=== PATIENT | female | born 1950 | race Caucasian/White ===

== ENCOUNTER 2025-04-16 11:11 | Day surgery (SDC) | payer MEDICARE, BC ==
[2025-04-09 12:00] LABS: MEAN PLATELET VOLUME 7.3 FL (7.4-10.4); PRE OP HEMATOCRIT 37.6 % (35.0-45.0); PRE OP HEMOGLOBIN 12.4 g/dL (12.0-16.0); PRE OP PLATELET COUNT 414 X10'3 (140-440); PRE OP WHITE BLOOD COUNT 5.9 10'3 (4.8-10.8); RED CELL DISTRIBUTION WIDTH 13.8 % (11.5-14.5)
--- NOTE | 2025-04-09 12:13 | ELECTROCARDIOGRAPH REPORT ---
[facility] Test Date: 2025-04-09 Test Time: 12:11:33 Pat Name: SHELL BELL [id number] Room: Gender: F Blurb Writer: CHARLES : 1950 Requested By: JEAN PIERRE DODD Order Number: [id number] Reading MD: Dr. TD Long Measurements Intervals [place] Rate: 58 P: 70 [place]: 171 QRS: 26 QRSD: 104 T: 84 QT: 462 QTc: 454 Interpretive Statements Sinus bradycardia Left atrial enlargement RSR' in V1 or V2, probably normal variant Borderline repolarization abnormality Electronically Signed On 04-09-2025 16:48:[address] TD Long Please click the below link to view image of tracing.
[2025-04-09 12:15] LABS: CREATININE 0.47 MG/DL (0.40-0.90); PRE OP ALT 32 U/L (30-65); PRE OP ANION GAP 8 (8-16); PRE OP AST 24 U/L (10-37); PRE OP BILIRUB, TOTAL 1.8 MG/DL (0.0-1.0); PRE OP GLUCOSE 112 MG/DL (70-104); PRE OP POTASSIUM 3.6 MMOL/L (3.4-5.1); PRE OP SODIUM 141 MMOL/L (135-145); TOTAL CARBON DIOXIDE 30.0 MMOL/L (24-32); eGFR > 90 ML/MIN
[~2025-04-16] VITALS: Ht 154.9 cm; Wt 60.8 kg
[2025-04-16] VITALS (44 sets, daily range): BP systolic 116–152; BP diastolic 63–97; PULSE 56–92; RESP 10–26; TEMP 98.2–99; O2SAT 87–100
[~2025-04-16 11:11] MED LIST: AMLO2.5T5 PO; ATOR40TA72 PO; CELE-127 PO; CHOL20004 PO; ESOM40CA66 PO; HYDR-3972 PO; LOSA50TA64 PO; MAGN400T39 PO; MULT-1249 PO; SOLI5TAB8 PO; [UNRECOGNIZED DRUG - CODE] PO
[2025-04-16] MEDS: ceFAZolin 2gm/dext,iso 50mL 50 ML IV ONE (12:06)
[2025-04-16] MEDS: ringers solution, lacted 1,000 ML IV SCH ×2 (12:06→13:10)
[2025-04-16] MEDS ORDERED: BUPIVAcaine/PF 2.5mg/ml (0.25%) 10ml vial ONE (13:04)
[2025-04-16] MEDS ORDERED: LIDOcaine 1% 30ml preserv. free vial ONE (13:04)
[2025-04-16] MEDS ORDERED: BUPIVAcaine 2.5mg/ml inj 50ml vial (contains preservative) ONE (13:04)
[2025-04-16] MEDS ORDERED: BUPIVACAINE liposomal/PF 13.3 MG/ML 10mL vial IM ONE (13:05)
[2025-04-16] MEDS ORDERED: labetalol 20mg/4ml (5mg/ml) syringe IV PRN (13:10)
[2025-04-16] MEDS ORDERED: morphine 4 MG/ML inj SYRINge IV PRN (13:10)
[2025-04-16] MEDS ORDERED: ondansetron/PF 4mg/2ml inj IV PRN ×2 (13:10→19:30)
[2025-04-16] MEDS ORDERED: hydrALAZINE 20mg/ml inj. IV PRN (13:10)
--- NOTE | 2025-04-16 13:16 | HISTORY AND PHYSICAL ---
History & Physical Providers to CC CC: JEAN PIERRE DODD MD ~ History of Present Illness Reason for Admit\Complaint: Incarcerated ventral hernia History of Present Illness Interval history and physical exam Patient is here today for elective repair of a ventral hernia She was seen in the office greater than 30 days ago but denies any change in her past medical history since that date Please see previous history and physical exam for all pertinent details She is scheduled for robotic assisted, laparoscopic incarcerated ventral hernia repair with mesh Allergies: Coded Allergies: No Known Allergies (Unverified , 04/15/25) Home Medications Home Medications Active Reported Multivitamin 1 Each Tablet 1 Tab PO HS 30 Days Coqmax-[place] 100 mg Softgel ([place]-3/Dha/Epa/Fish Oil/Coq10) 348-100 Mg Capsule 1 Tab PO HS Vitamin D (Cholecalciferol) 2,000 Unit Tablet 5,000 Units PO HS 30 Days Magnesium (Magnesium Oxide) 400 Mg Magnesium Tablet 1 Tab PO HS 30 Days Hydrocodon-Acetaminophn 10-325 tablet (Acetaminophen/Hydrocodone Bitart) 10mg- 325mg Tablet 1 Tab PO TID PRN Solifenacin Succinate 5 Mg Tablet 1 Tab PO DAILY Losartan Potassium 50 Mg Tablet 1 Tab PO BID@0800,2100 Amlodipine Besylate 2.5 Mg Tablet 1 Tab PO HS Atorvastatin Calcium 40 Mg Tablet 1 Tab PO HS Esomeprazole Magnesium 40 Mg Capsule.dr 1 Cap PO DAILY Celecoxib 200 Mg Capsule 1 Tab PO BID ROS ROS Reviewed and negative Exam Chest: Lungs are are clear to auscultation bilaterally Cardiovascular: Regular rate and rhythm without murmurs Abdomen: Soft and nondistended Supraumbilical mass consistent with a history of incarcerated ventral hernia Problems: (1) Incarcerated ventral hernia Assessment & Plan: The risks, benefits, and alternatives to a robotic assisted, laparoscopic incarcerated ventral hernia repair with mesh were discussed with the patient. Risks include, but are not limited to, bleeding, infection, injury to intra-abdominal structures, hernia recurrence and chronic postoperative pain. Patient verbalized understanding and wishes to proceed with surgery. We will do so today as scheduled JEAN PIERRE DODD MD Apr 16, 2025 13:16
[2025-04-16] MEDS ORDERED: midazolam 1 mg/ML 2ml injection ONE (13:18)
[2025-04-16] MEDS ORDERED: fentaNYL /PF 50mcg/ml 5ml ampule ONE (13:18)
[2025-04-16] MEDS: BUPIVAcaine/PF 2.5 mg/ml (0.25%) 30ml vial IJ ONE (13:49)
[2025-04-16] MEDS: BUPIVACAINE liposomal/PF 13.3 MG/ML 10mL vial IM ONE (13:50)
[2025-04-16] MEDS: LIDOcaine 1% 30ml preserv. free vial IJ ONE (13:50)
[2025-04-16] MEDS ORDERED: propofol inj 20 ML IV ONE (14:44)
[2025-04-16] MEDS ORDERED: rocuronium 10mg/ml inj IV ONE (14:44)
[2025-04-16] MEDS ORDERED: ondansetron/PF 4mg/2ml inj ONE (14:44)
[2025-04-16] MEDS ORDERED: dexamethasone sod phosphate 4mg/ml inj. ONE (14:44)
[2025-04-16] MEDS ORDERED: LIDOcaine 2% (20mg/ml) 5ml vial ONE (14:45)
[2025-04-16] MEDS ORDERED: glycopyrrolate 0.2mg/ml inj ONE (14:45)
[2025-04-16] MEDS: HYDROmorphone/PF 0.2 MG/ML SYRINGE IV PRN ×2 (15:17→16:05)
[2025-04-16] MEDS: acetaminophen 1,000mg/100ml IV 100 ML IV PRN (15:18)
--- NOTE | 2025-04-16 15:25 | OPERATIVE REPORT ---
Operative Report Providers to CC CC: CECIL DODD MD ~ Date of Procedure: Apr 16, 2025 Pre-Operative Diagnosis: Incarcerated ventral hernia Post-Operative Diagnosis 2 cm incarcerated ventral hernia Procedure Performed Robotic assisted, laparoscopic 2 cm incarcerated ventral hernia repair with mesh Surgeon: Cecil Dodd MD FACS Instruction Dean None Anesthesiologist: Raoul Hratman Type of Anesthesia: General Findings: 2 cm ventral hernia with large amount of incarcerated preperitoneal fat; midepigastrium Very small subcentimeter ventral hernia just below this Wound class I Complications None Prosthetics\Implants used: 10 x 10 cm ProGrip mesh Estimated Blood Loss: Minimal Specimen Removed: None Description of Procedure: Patient was brought to the operating room and identified by the nursing staff and the attending physician. Patient was placed supine and a general anesthesia was induced. Preoperative antibiotics were given. The abdomen was prepped and draped in the standard sterile fashion. Through a left subcostal stab incision the abdomen was accessed with a Veress needle technique. Abdomen was insufflated without incident. The incision was lengthened to accommodate a 12 mm optical trocar and the abdomen was entered under laparoscopic visualization. The abdomen was surveyed laparoscopically. There was indentation of the mid falciform ligament consistent with history of incarcerated ventral hernia. Multiple attempts at reducing this with external pressure were unsuccessful. Under laparoscopic visualization, robotic trochars were placed in the left lower and right lower quadrants. The da John robotic arm was docked to the patient and instruments guided intra-abdominally under laparoscopic visualization. Patient was placed in reverse Trendelenburg position. About 5 cm below the anticipated fascial defect, a peritoneal rent was created in the preperitoneal plane was developed and dissected superiorly. A 10 x 10 cm space, centered at the fascial defect was then developed. During the dissection, two separate fascial defects were encountered, one smaller defect, less than 1 cm and a 2 cm fascial defect with a large amount of incarcerated preperitoneal fat. Contents were completely reduced. Defects were closed with a running absorbable suture and a 10 x 10 cm ProGrip mesh was passed into the preperitoneal space. This was unfolded, centered at the larger defect. Peritoneal flap was then closed with a running absorbable suture. [place] were retrieved. The da John instruments were then removed and the robot undocked from the patient. Ports were removed after the abdomen was allowed to deflate. Skin was closed at all sites with 4-0 Monocryl sutures and dressed with sterile dressings. Patient was awakened and taken to the postanesthesia care unit in stable condition. Counts repoted as correct: Yes CECIL DODD MD Apr 16, 2025 15:25
[2025-04-16] MEDS ORDERED: PER5325T PO (15:26)
[2025-04-16] MEDS: HYDROcodone/acetaminophen 10/325mg tab PO ONE (16:37)
[2025-04-16] MEDS ORDERED: oxyCODONE/APAP 5-325mg tablet PO PRN (19:30)
[2025-04-16] MEDS: EPA PO SCH (21:31)
[2025-04-16] MEDS: DHA PO SCH (21:31)
[2025-04-16] MEDS: FISH OIL PO SCH (21:31)
[2025-04-16] MEDS: COQ10 PO SCH (21:31)
[2025-04-16] MEDS: OMEGA PO SCH (21:31)
[2025-04-16] MEDS: cholecalciferol (vitamin D3) 1,000 unit (25mcg) tablet PO SCH (22:03)
[2025-04-16] MEDS: multivitamins, therapeutics tablet PO SCH (22:05)
[2025-04-16] MEDS: docusate sod 100mg capsule PO SCH (22:10)
[2025-04-16] MEDS: oxyCODONE/APAP 5-325mg tablet PO PRN (22:15)
[2025-04-17 00:20] VITALS: BP 111/66; PULSE 63; O2SAT 95
[2025-04-17 02:00] VITALS: BP 110/60; PULSE 64; RESP 16; TEMP 98; O2SAT 96
[2025-04-17 02:20] VITALS: O2SAT 96
[2025-04-17 06:30] VITALS: BP 114/63; PULSE 71; RESP 19; TEMP 97.9; O2SAT 95
[2025-04-17] MEDS: pantoprazole 40mg Tablet.DR PO SCH (07:38)
[2025-04-17] MEDS ORDERED: CELECOXIB PO SCH (08:00)
[2025-04-17 11:00] VITALS: BP 114/60; PULSE 68; RESP 17; TEMP 98; O2SAT 95
[2025-04-17 13:56] VITALS: RESP 16
--- NOTE | 2025-04-17 17:35 | DISCHARGE SUMMARY ---
Discharge Summary Providers to CC CC: CECIL DODD MD ~ Discharge Summary Admission Diagnosis: Incarcerated ventral hernia Hospital Course DATE OF ADMISSION: April 16, 2025 DATE OF DISCHARGE: April 17, 2025 Discharge Diagnosis\Comment: Incarcerated ventral hernia Hypoxia Operations\Procedures: Robotic assisted, laparoscopic incarcerated ventral hernia repair with mesh Consultants: Cecil Dodd MD FACS Complications: None Condition on DC: Stable New Medications: Oxycodone Hcl/Acetaminophen 5/325 MG* (Percocet 5/325 MG*) 5 Mg/325 Mg Tablet 1 TAB PO Q4H PRN for moderate or severe pain 4-10 for 5 Days, #30 TAB Continued Medications: Amlodipine Besylate (Amlodipine Besylate) 2.5 Mg Tablet 1 TAB PO HS Atorvastatin Calcium (Atorvastatin Calcium) 40 Mg Tablet 1 TAB PO HS Celecoxib (Celecoxib) 200 Mg Capsule 1 TAB PO BID Cholecalciferol (Vitamin D) 2,000 Unit Tablet 5000 UNITS PO HS for 30 Days, #30 TAB 0 Refills Esomeprazole Magnesium (Esomeprazole Magnesium) 40 Mg Capsule.dr 1 CAP PO DAILY Losartan Potassium (Losartan Potassium) 50 Mg Tablet 1 TAB PO BID@0800,2100 Magnesium Oxide (Magnesium) 400 Mg Magnesium Tablet 1 TAB PO HS for 30 Days, #60 TAB 0 Refills Multivitamin (Multivitamin) 1 Each Tablet 1 TAB PO HS for 30 Days, #30 TAB 0 Refills [place]-3/Dha/Epa/Fish Oil/Coq10 (Coqmax-[place] 100 mg Softgel) 348-100 Mg Capsule 1 TAB PO HS Solifenacin Succinate (Solifenacin Succinate) 5 Mg Tablet 1 TAB PO DAILY Discontinued Medications: Hydrocodone Bit/Acetaminophen (Hydrocodon-Acetaminophn 10-325 tablet) 10mg- 325mg Tablet 1 TAB PO TID PRN for pain Discharge Summary: Patient underwent routine robotic assisted, laparoscopic ventral hernia repair with mesh. Plan was to discharge from recovery room, however, patient had apneic episodes with her oxygenation dropping into the upper 70s. She was deemed unsafe for discharge and was admitted for observation overnight. She was provided supplemental oxygen and incentive spirometry. She was also provided pain control. On the morning following surgery, her supplemental oxygen was discontinued and she was able to maintain good saturations without. She tolerated diet and pain was adequately controlled. She was deemed ready for discharge home. *Problems/Diagnosis: (1) Incarcerated ventral hernia Status: Chronic (2) Postoperative hypoxia Total Time Spent on D/C: Up to 30 Minutes CECIL DODD MD Apr 17, 2025 17:34
[2025-04-17] MEDS ORDERED: MULTIVITAMIN PO SCH (21:00)
[2025-04-17] MEDS ORDERED: OMEGA-3/DHA/EPA/FISH OIL 1 EACH CAPSULE.DR PO SCH (21:00)
== END 2025-04-17 19:15 | disposition home or self-care (01) ==
LOC: SUR 3N 11:11 → PAS 11:11 → SUR 3N 19:37 → UNDOADMIN 19:37 → PAS 04-17 19:15
PROVIDERS: ATTEND Surgery
DX: K43.6 Other and unspecified ventral hernia with obstruction, without gangrene (principal); I10 Essential (primary) hypertension; E78.5 Hyperlipidemia, unspecified; K21.9 Gastro-esophageal reflux disease without esophagitis; M79.7 Fibromyalgia; M19.90 Unspecified osteoarthritis, unspecified site; Z79.891 Long term (current) use of opiate analgesic; Z79.899 Other long term (current) drug therapy; Z90.710 Acquired absence of both cervix and uterus; Z98.890 Other specified postprocedural states
CPT/HCPCS: 36415; 49592; 80053; 82948; 85025; 87081; 93005; A4215; A4615; A4618; C1781; J0131; J0666; J1100; J1171; J2003; J2250; J2405; J2704; J2710; J3010; J3490; J7030; J7120; Z7506; Z7508; Z7512; Z7610; G0378